=== PATIENT | female | born 1965 | race Caucasian/White ===

== ENCOUNTER → 2017-04-11 | Outpatient (CLI) | payer BC ==
[~2017-04-11] VITALS: Ht 165.1 cm; Wt 95.3 kg
[~2017-04-11] MED LIST: CITA20TA9 PO
[2017-04-11 08:53] VITALS: BP 134/76
--- NOTE | 2017-04-11 10:05 | RAD ---
Ultrasound-guided right thyroid biopsy, 04/11/2017: History: Thyroid nodule Previous studies demonstrated a mixed cystic and solid nodule in the right lobe of the thyroid gland. Under local anesthesia, aseptic conditions and sonographic guidance a 25-gauge needle was passed into this nodule via an anteromedial approach. 4 aspirates were obtained in this manner from different portions of the nodule. The materials were sent to pathology for evaluation. Hemostasis was then obtained. The pathology report is pending. The patient tolerated the procedure well and left the department in good condition.
--- NOTE | 2017-04-12 14:41 | PATHOLOGY ---
CYTOPATHOLOGY REPORT CLINICAL HISTORY: Right Thyroid Nodule SPECIMEN(S) RECEIVED: A.Fine needle aspiration, Right thyroid FINAL DIAGNOSIS: Right thyroid nodule fine needle aspiration, smears and ThinPrep: - [place] category: Benign. - Clusters of follicular epithelial cells, abundant macrophages, scant colloid, and blood identified. COMMENT: The findings are consistent with an adenomatous nodule. PATHOLOGIST: Silvio Emerson M.D. REPORT ELECTRONICALLY SIGNED BY: Silvio Emerson M.D. DATE/TIME: 04/12/2017 14:40 GROSS PATHOLOGY: A. Fine needle aspiration, Right thyroid: The specimen is labeled "Jenna Cordero" and consists of two H and E slides, two air dried slides, two fixed slides. Thirty mL of clear light pink fluid in fixative from the needle rinse is also submitted and one ThinPrep slide was prepared from this material. Also received one RNA retain vial. (mm 04.11.2017) SUPERVISOR PHOSPHORUS PROCESSING(S): JOSE MIGUEL eJnsen([facility]) INITIAL CPT CODE(S): A; 36049 Professional services performed [place] [facility] [place] [address] Technical services performed by [facility] at [address] [place] [address], [facility] [address] [address]. PATIENT: JENNA CORDERO /AGE: 111/28/1965 (Age: 51) SEX: F PATIENT #: [id number] ALT CASE #: SPECIMEN COLLECTION DATE: 04/11/2017 SPECIMEN RECEIVED DATE: 04/11/[address] [facility] [address] [place] [address], [address] [place] [address] PHONE: [phone] DIRECTOR: Asim Nunez M.D. * * * END OF REPORT * * *
== END | disposition home or self-care (01) ==
LOC: US 08:03
PROVIDERS: ATTEND Family Medicine
DX: E04.1 Nontoxic single thyroid nodule (principal)
CPT/HCPCS: 60300; 76942

== ENCOUNTER → 2018-12-09 | Outpatient (CLI) | payer BC ==
[2017-04-11 08:53] VITALS: BP 134/76
[~2018-12-09] MED LIST changes: +IOHEXOL 240 MG/ML 50ML VIAL. PO ONE; +IOHEXOL 300 MG/ML 100ML VIAL. IV ONE
--- NOTE | 2018-12-09 11:53 | KCIC ---
PQRS Compliance statement: One or more of the following individualized dose reduction techniques were utilized for this examination: 1. Automated exposure control. 2. Adjustment of the mA and/or kV according to patient size. 3. Use of iterative reconstruction technique. Indication:Low back pain, lower abdominal pain. TECHNIQUE: CT abdomen and pelvis with IV contrast with multiplanar reformats. COMPARISON: None FINDINGS: Heart is normal in size. No pericardial or pleural effusion. Clear lung bases. Too small to characterize low attenuating lesion is seen in segment 8 of the liver likely cystic biliary hamartoma. Otherwise, liver, spleen, gallbladder, pancreas, adrenals and kidneys are within normal limits. No nephrolithiasis. No free pelvic fluid or ascites. No enlarged retroperitoneal or pelvic adenopathy. No bowel obstruction. Anteverted uterus. Urinary bladder within normal limits. No suspicious bony lesion. IMPRESSION: No acute findings. Electronically signed by: Baudilio Banegas DO (12/09/2018 11:48 AM) [id number]
--- NOTE | 2018-12-10 14:19 | KCIC ---
Bilateral digital screening mammograms with 3-D tomosynthesis: Reason for examination: Routine screening. Comparison is made to previous studies dated 02/07/2017 and 03/06/2014. Bilateral mammograms in CC and oblique projections were obtained with 2-D imaging and 3-D tomosynthesis imaging on a Siemens Inspiration unit and reviewed on the workstation. Interpretation was made with the benefit of CAD. The skin and nipples show no abnormalities. No abnormal axillary lymph nodes are seen. The breast parenchyma shows scattered fatty and fibroglandular density. (Breast density: Category B.) There are no dominant masses, suspicious calcifications or architectural distortion. Impression: No evidence of malignancy. Recommend routine screening. BI-RAD Category 1: Negative. "Our facility is accredited by the [employer] Mammography Program." This patient's information has been entered into a reminder system for the patient to be notified with the results of her examination and a target date for the next mammogram. Electronically signed by: Lucía Koch MD (12/10/2018 2:15 PM) [id number]
== END | disposition home or self-care (01) ==
LOC: KCIC CT 09:32
PROVIDERS: ATTEND Nurse Practitioner Family
DX: Z12.31 Encounter for screening mammogram for malignant neoplasm of breast (principal); R10.30 Lower abdominal pain, unspecified; M54.5 Low back pain; Z87.891 Personal history of nicotine dependence
CPT/HCPCS: 74177; 77063; 77067; Q9966; Q9967

== ENCOUNTER → 2020-07-05 | Outpatient (CLI) | payer BC ==
[2017-04-11 08:53] VITALS: BP 134/76
[~2020-07-05] MED LIST changes: -IOHEXOL 240 MG/ML 50ML VIAL. PO ONE; -IOHEXOL 300 MG/ML 100ML VIAL. IV ONE
--- NOTE | 2020-07-05 08:41 | RAD ---
EXAM: Carotid Doppler sonogram. HISTORY: Left carotid stenosis. TECHNIQUE: Gruber scale and color Doppler sonographic evaluation of the neck with spectral waveform analysis was performed and static images are submitted for review. FINDINGS: There is mild atherosclerotic plaque within the carotid bifurcations. The peak systolic velocity within the right common carotid artery is 83 cm/sec. The peak systolic velocity within the right internal carotid artery is 104 cm/sec and the end diastolic velocity within the right internal carotid artery is 46 cm/sec. The right ICA/CCA ratio is 1.3. The peak systolic velocity within the left common carotid artery is 123 cm/sec. The peak systolic velocity within the left internal carotid artery is 101 cm/sec and the end diastolic velocity within the left internal carotid artery is 42 cm/sec. The left ICA/CCA ratio is 1.3. There is normal antegrade flow within both vertebral arteries. IMPRESSION: No elevated peak systolic velocity involving the ICAs or elevated ICA to CCA ratio to suggest greater than 50 percent stenosis. PQRS Compliance Statement - Stenosis calculations for CT, MR and conventional angiography are based upon measurement of the distal ICA diameter in accordance with the NASCET methodology. Stenosis calculations for carotid ultrasound studies are derived from validated velocity criteria which are known to correlate with the NASCET methodology. Electronically signed by: Sridevi Cohen MD (07/05/2020 8:38 AM) [id number]
--- NOTE | 2020-07-05 09:14 | RAD ---
EXAM: Abdomen sonogram. HISTORY: Abnormal liver function laboratory values. TECHNIQUE: Sonographic imaging of the abdomen was performed. COMPARISON: 12/09/2018. FINDINGS: The liver is normal in size. There is hepatic steatosis. There are circumscribed solid hyperechoic lesions within the liver measuring 1.1 cm within the left hepatic lobe and 1.0 cm within the right hepatic lobe. The gallbladder is unremarkable. The common bile duct is normal in caliber. The right kidney, pancreas, and inferior vena cava are unremarkable. IMPRESSION: 1. Hepatic steatosis. 2. Echogenic lesions measuring 1.1 cm within the left hepatic lobe and 1.0 cm within the right hepatic lobe. In the absence of known primary malignancy, these are likely benign hemangiomas. A liver protocol MRI can be performed for better characterization if there are risk factors for hepatic metastases. Electronically signed by: Sridevi Cohen MD (07/05/2020 9:12 AM) [id number]
== END | disposition home or self-care (01) ==
LOC: US 10:30
PROVIDERS: ATTEND Family Medicine
DX: I65.22 Occlusion and stenosis of left carotid artery (principal); R79.89 Other specified abnormal findings of blood chemistry; K76.0 Fatty (change of) liver, not elsewhere classified; K76.9 Liver disease, unspecified
CPT/HCPCS: 76705; 93880

== ENCOUNTER → 2020-07-09 | Outpatient (CLI) | payer BC ==
[2017-04-11 08:53] VITALS: BP 134/76
[~2020-07-09] MED LIST changes: +GADOTERATE 7.5 MMOL/15ML VIAL. IVP ONE
--- NOTE | 2020-07-10 11:14 | RAD ---
EXAM: MRI ABDOMEN WITH AND WITHOUT CONTRAST. HISTORY: Liver lesions. TECHNIQUE: MRI of the abdomen was performed before and after the intravenous administration of 19 mL Dotarem. COMPARISON: 07/05/2020, 12/09/2018. FINDINGS: Liver: There is no significant steatosis. Small hypointense lesions within the left hepatic lobe are seen on opposed phased images but not in phase, consistent with focal fatty infiltration. The largest measures 9 mm on series 5 image 10. Another is seen on image 12. There is a tiny cyst in the right hepatic lobe. Others are consistent with calcified granulomas. These appear stable since 12/09/2018. There are no clearly suspicious hepatic lesions. Biliary tree: The gallbladder is unremarkable. The common duct is not dilated. There are no suspicious pancreatic parenchymal lesions. The pancreatic duct is not dilated. Other findings: Subcentimeter left renal cysts are benign. There is a retroaortic left renal vein. The right kidney, spleen and adrenal glands are unremarkable. There is a small hiatal hernia. Stool throughout the colon is consistent with constipation. IMPRESSION: 1. The left hepatic lobe lesions are most consistent with focal steatosis, appear stable, and are likely benign. No clearly suspicious hepatic lesions. 2. Small hiatal hernia. 3. Correlate for constipation. Electronically signed by: Janna Best MD (07/10/2020 11:11 AM) [id number]
== END | disposition home or self-care (01) ==
LOC: MRI 12:47
PROVIDERS: ATTEND Family Medicine
DX: K44.9 Diaphragmatic hernia without obstruction or gangrene (principal); N28.1 Cyst of kidney, acquired; R16.0 Hepatomegaly, not elsewhere classified; K76.89 Other specified diseases of liver; K59.00 Constipation, unspecified
CPT/HCPCS: 74183; A9575